=== PATIENT | female | born 1945 | race Caucasian/White ===

== ENCOUNTER 2022-01-10 11:49 | Outpatient (CLI) | payer MEDICARE, SELFPAY ==
[2022-01-10 12:28] LABS: Hematocrit 41.3 % (33.0-51.0); Hemoglobin* 13.8 gm/dL (12.0-16.0); Mean Corpuscular HGB Conc 33 gm/dL (32-36); Mean Corpuscular Hemoglobin 33 pg (26-34); Mean Corpuscular Volume 99 fL (80-100); Platelet Count* 212 K/uL (140-440); Red Blood Count 4.19 m/uL (4.00-5.20); White Blood Count* 8.59 K/uL (4.50-11.00)
[2022-01-10 21:37] LABS: Albumin* 4.4 g/dL (3.3-5.0)
[2022-01-10 21:38] LABS: Chloride* 98 mmol/L (96-114); Potassium* 4.6 mmol/L (3.6-5.1); Sodium* 133 mmol/L (135-149)
[2022-01-10 21:40] LABS: Aspartate Amino Transferase* 29 U/L (12-35); Bilirubin Total* 0.5 mg/dL (0.1-1.5); Carbon Dioxide* 26 mmol/L (20-32); Creatinine* 0.7 mg/dL (0.5-1.5); Estimated Glomerular Filt Rate 89 ml/min
[2022-01-10 21:41] LABS: Alanine Aminotransferase* 18 U/L (4-35); Alkaline Phosphatase* 88 U/L (40-150); Blood Urea Nitrogen* 22 mg/dL (7-30); Calcium* 9.1 mg/dL (8.4-10.6); Glucose* 94 mg/dL (60-115); Total Protein* 7.8 g/dL (6.0-8.3)
[2022-01-10 22:14] LABS: TSH With Reflex to FT4* 0.723 uIU/mL (0.270-4.200)
[2022-01-11 08:00] LABS: Slide Review Reflex No
[2022-01-12 13:22] LABS: LDL Cholesterol, Direct 135 mg/dL (0-129)
== END 2022-01-10 11:50 | disposition home or self-care (01) ==
PROVIDERS: PCP Family Medicine; Visit Provider Family Medicine
DX: I10 Essential (primary) hypertension (principal); L40.9 Psoriasis, unspecified; E78.5 Hyperlipidemia, unspecified; R06.09 Other forms of dyspnea; R00.2 Palpitations
CPT/HCPCS: 80053; 83721; 84443; 85027

== ENCOUNTER 2022-05-14 19:59 | Emergency (ER) | payer MEDICARE, SELFPAY ==
[2022-05-14] VITALS (40 sets, daily range): BP systolic 125–188; BP diastolic 76–133; PULSE 67–148; RESP 18; TEMP 36.6; O2SAT 94–99; BMI 24.6
--- NOTE | 2022-05-14 20:33 | CRLHL7_ITS ---
For Patients: As a result of the Cures Act, medical imaging exams and procedure reports are released immediately into your electronic medical record. You may view this report before your referring provider. If you have questions, please contact your health care provider. INDICATION: Shortness of breath. TECHNIQUE: Chest 1 views. COMPARISON: Chest x-ray from 05/06/2010. FINDINGS: Lungs: Patchy right lower lobe opacity. Pleura: No pleural effusion or pneumothorax. Heart and Mediastinum: The cardiomediastinal silhouette is mildly prominent. The vessels are unremarkable. Bones: Unremarkable. IMPRESSION: Right lower lobe opacity could be atelectasis or developing infection in the appropriate clinical setting. Dictated by Lisandro Jones MD @ 05/14/2022 9:23:36 PM (Electronically Signed)
[2022-05-14] MEDS: dilTIAZem 5 MG/ML inj 10 MG IVP (20:35)
[2022-05-14 20:40] LABS: Basophils Absolute Auto 0.04 K/uL (0.00-0.30); Basophils Percent Auto 0.4 % (0.0-3.0); Eosinophils Absolute Auto 0.13 K/uL (0.00-0.50); Eosinophils Percent Auto 1.3 % (0.0-7.0); Hematocrit 43.2 % (33.0-51.0); Hemoglobin* 14.6 gm/dL (12.0-16.0); Immature Granulocytes Abs Auto 0.01 K/uL (0.00-0.30); Immature Granulocytes Pct Auto 0.1 %; Lymphocytes Absolute Auto 2.19 K/uL (0.90-2.90); Lymphocytes Percent Auto 21.2 % (20-44); Mean Corpuscular HGB Conc 34 gm/dL (32-36); Mean Corpuscular Hemoglobin 32 pg (26-34); Mean Corpuscular Volume 96 fL (80-100); Neutrophils Absolute Auto 7.23 K/uL (1.7-7.0); Platelet Count* 222 K/uL (140-440); RDW Coefficient of Variation % 11.7 % (11.5-15.5); Red Blood Count 4.52 m/uL (4.00-5.20); White Blood Count* 10.32 K/uL (4.50-11.00)
[2022-05-14 20:42] LABS: Slide Review Reflex No
--- NOTE | 2022-05-14 20:59 | ED_ITS ---
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 Symptoms began in the last 2 hours prior to arrival. Pt having some anterior 4/10 chest pain as well. No diaphoresis, nausea, vomiting but does feel weak. Pt is on stable medications and has had no other symptoms recently. Pain is dull and does not radiate. Pain is located in the mid chest anteriorly. No treatments prior to arrival. EKG upon arrival shows atrial fibrillation with a rate of 147. Pt placed on tele and does at times convert to sinus rhythm with a rate of 75 but goes back into atrial fibrillation with RVR after only a few seconds. Related Data Home Medications Medication Instructions Recorded Confirmed aspirin 325 mg tablet 325 mg PO QDAY 05/03/22 05/03/22 Previous Rx's Medication Instructions Recorded lisinopril 10 mg tablet 10 mg PO QDAY #90 tabs 03/04/22 metoprolol succinate 25 mg 25 mg PO QDAY #90 tabs 03/12/22 tablet,extended release 24 hr Allergies Allergy/AdvReac Type Severity Reaction Status Date / Time No Known Allergies Allergy Unknown Verified 05/03/22 09:33 Review of Systems Status of ROS: Reports: 10 or more systems reviewed and unremarkable except as noted in History and below [facility] Medical History Gastroesophageal reflux disease (05/01/10) Hypertension (06/08/10) Psoriasis (05/01/10) Surgical History History of appendectomy (05/01/10) Family History Other Osteoarthritis Social History Narrative: Has 4 children- 1 , 1 lives [place] Smoking Status: Former smoker How often do you have a drink containing alcohol: 4 or more times a week How many standard drinks containing alcohol do you have on a typical day: 1 or 2 How often do you have six or more drinks on one occasion: Never AUDIT-C Alcohol total score: 4 Non-prescribed substance use: denies use Exam Narrative: Exam Narrative: EXAM GENERAL: Patient appears comfortable and well. EYES: No scleral icterus. LYMPH: No supraclavicular or cervical lymphadenopathy. SKIN: Visible skin seen during exam normal or with benign process only. EXT: No dependent lower extremity pedal edema. HEART: Regular rate and rhythm with no murmurs, rubs, or gallops. LUNGS: Clear to auscultation bilaterally with no crackles or wheezes. ABD: Soft, non tender, non distended. PSYCH: Good eye contact, speech is not pressured. Const: Vital Signs, click to edit/add: Vital Signs - 24 hr 05/14/22 20:20 05/14/22 20:20 05/14/22 20:30 Temperature 97.9 F Pulse Rate Pulse Rate [Left P ulse Oximeter] 148 H 130 H 78 Respiratory Rate 18 Blood Pressure Blood Pressure [Ri ght Upper Arm] 180/133 H 180/133 H 188/106 H Pulse Oximetry 98 98 99 Oxygen Delivery Me thod Room Air Room Air Room Air 05/14/22 20:39 05/14/22 20:40 05/14/22 20:41 Temperature Pulse Rate 118 H 115 H 120 H Pulse Rate [Left P ulse Oximeter] Respiratory Rate Blood Pressure 162/100 H Blood Pressure [Ri ght Upper Arm] Pulse Oximetry 99 96 99 Oxygen Delivery Me thod 05/14/22 20:48 05/14/22 20:42 05/14/22 20:50 Temperature Pulse Rate 118 H 120 H Pulse Rate [Left P ulse Oximeter] Respiratory Rate Blood Pressure Blood Pressure [Ri ght Upper Arm] Pulse Oximetry 99 98 98 Oxygen Delivery Me thod 05/14/22 20:53 05/14/22 21:02 05/14/22 21:12 Temperature Pulse Rate 129 H 90 81 Pulse Rate [Left P ulse Oximeter] Respiratory Rate Blood Pressure 170/96 H Blood Pressure [Ri ght Upper Arm] Pulse Oximetry 97 97 94 Oxygen Delivery Me thod 05/14/22 21:20 05/14/22 21:22 05/14/22 21:23 Temperature Pulse Rate 74 76 77 Pulse Rate [Left P ulse Oximeter] Respiratory Rate Blood Pressure 126/86 Blood Pressure [Ri ght Upper Arm] Pulse Oximetry 97 98 98 Oxygen Delivery Me thod 05/14/22 21:30 05/14/22 21:31 05/14/22 21:40 Temperature Pulse Rate 74 74 73 Pulse Rate [Left P ulse Oximeter] Respiratory Rate Blood Pressure 134/79 Blood Pressure [Ri ght Upper Arm] Pulse Oximetry 97 97 97 Oxygen Delivery Me thod 05/14/22 21:43 05/14/22 21:50 05/14/22 21:52 Temperature Pulse Rate 78 73 73 Pulse Rate [Left P ulse Oximeter] Respiratory Rate Blood Pressure 131/83 Blood Pressure [Ri ght Upper Arm] Pulse Oximetry 94 96 96 Oxygen Delivery Me thod 05/14/22 22:00 05/14/22 22:02 05/14/22 22:10 Temperature Pulse Rate 71 73 69 Pulse Rate [Left P ulse Oximeter] Respiratory Rate Blood Pressure 137/79 Blood Pressure [Ri ght Upper Arm] Pulse Oximetry 96 96 97 Oxygen Delivery Me thod 05/14/22 22:13 05/14/22 22:20 05/14/22 22:23 Temperature Pulse Rate 69 68 69 Pulse Rate [Left P ulse Oximeter] Respiratory Rate Blood Pressure 125/76 130/80 Blood Pressure [Ri ght Upper Arm] Pulse Oximetry 97 97 98 Oxygen Delivery Me thod 05/14/22 22:30 05/14/22 22:34 05/14/22 22:40 Temperature Pulse Rate 67 67 69 Pulse Rate [Left P ulse Oximeter] Respiratory Rate Blood Pressure Blood Pressure [Ri ght Upper Arm] Pulse Oximetry 97 97 97 Oxygen Delivery Me thod 05/14/22 22:43 05/14/22 22:50 05/14/22 22:54 Temperature Pulse Rate 69 69 67 Pulse Rate [Left P ulse Oximeter] Respiratory Rate Blood Pressure Blood Pressure [Ri ght Upper Arm] Pulse Oximetry 97 97 97 Oxygen Delivery Me thod 05/14/22 23:00 05/14/22 23:10 05/14/22 23:15 Temperature Pulse Rate 69 70 78 Pulse Rate [Left P ulse Oximeter] Respiratory Rate Blood Pressure Blood Pressure [Ri ght Upper Arm] Pulse Oximetry 97 97 97 Oxygen Delivery Me thod 05/14/22 23:20 05/14/22 23:24 05/14/22 23:30 Temperature Pulse Rate 69 75 72 Pulse Rate [Left P ulse Oximeter] Respiratory Rate Blood Pressure Blood Pressure [Ri ght Upper Arm] Pulse Oximetry 98 98 98 Oxygen Delivery Me thod 05/14/22 23:40 05/14/22 23:50 Temperature Pulse Rate 81 69 Pulse Rate [Left P ulse Oximeter] Respiratory Rate Blood Pressure Blood Pressure [Ri ght Upper Arm] Pulse Oximetry 99 97 Oxygen Delivery Me thod Course Course Hospital Course: Pt seen and examined. Consulted with Cardiology who agreed with Cardizem 10 mg IV to slow the rate. Reevaluation(s) Reevaluation #1: Labs reassuring. Pt converted back to sinus rhythm after the 10 mg IV Cardizem given. 90 minute troponin pending. Time: 22:29 Reevaluation #2: POC Troponin at 90 minutes mildly elevated at 0.07 but lab Troponin normal. Case discussed again with Cardiology recommending rate control. Pt refuses anticoagulation. Time: 23:15 Vital Signs Vital signs: Initial Vital Signs Temperature 97.9 F 05/14/22 20:20 Temperature Source Temporal Artery Scan 05/14/22 20:20 Pulse Rate 148 H 05/14/22 20:20 Pulse Rhythm 05/14/22 20:20 Respiratory Rate 18 05/14/22 20:20 Blood Pressure 180/133 H 05/14/22 20:20 Blood Pressure Mean 148 05/14/22 20:20 Blood Pressure Position Semi-Fowlers 05/14/22 20:20 Pulse Oximetry 98 05/14/22 20:20 Oxygen Delivery Method 05/14/22 20:20 Vital Signs Temperature 97.9 F 05/14/22 20:20 Pulse Rate 148 H 05/14/22 20:20 Respiratory Rate 18 05/14/22 20:20 Blood Pressure 180/133 H 05/14/22 20:20 Pulse Oximetry 98 05/14/22 20:20 Oxygen Delivery Method 05/14/22 20:20 Temperature 97.9 F 05/14/22 20:20 Pulse Rate 69 05/14/22 23:50 Respiratory Rate 18 05/14/22 20:20 Blood Pressure 130/80 05/14/22 22:23 Pulse Oximetry 97 05/14/22 23:50 Oxygen Delivery Method 05/14/22 20:30 MDM - Arrhythmia/Palpitations MDM Narrative Medical decision making narrative: Pt with a history of atrial fibrillation presents with tachycardia. Pt given 10 mg of Cardizem once. Converted to sinus rhythm. Lab troponin times two normal. Case discussed with Cardiology. Will increase Toprol XL to 37.5 daily with Cardiology follow up. Pt continues to refuse anticoagulation. Differential Diagnosis Differential diagnosis: Likely palpitations, sinus tachycardia, artial fibrillation, artial flutter, ventricular premature beats, supraventricular tachycardia, ventricular tachycardia and WPW Medical Records Attestation: I reviewed the patient's medical records. Lab Data Labs: Lab Results 05/14/22 05/14/22 05/14/22 Range/Units 20:20 20:30 20:30 WBC 10.32 (4.50-11.00) K/uL RBC 4.52 (4.00-5.20) m/uL Hgb 14.6 (12.0-16.0) gm/dL Hct 43.2 (33.0-51.0) % MCV 96 (80-100) fL MCH 32 (26-34) pg MCHC 34 (32-36) gm/dL RDW Coeff of Katheryn 11.7 (11.5-15.5) % Plt Count 222 (140-440) K/uL Neut % (Auto) 70.0 (42.0-72.0) % Lymph % (Auto) 21.2 (20-44) % [place] % (Auto) 7.0 (0.0-11.0) % Eos % (Auto) 1.3 (0.0-7.0) % Baso % (Auto) 0.4 (0.0-3.0) % Neut # (Auto) 7.23 H (1.7-7.0) K/uL Lymph # (Auto) 2.19 (0.90-2.90) K/uL [place] # (Auto) 0.70 (0.00-0.90) K/UL Eos # (Auto) 0.13 (0.00-0.50) K/uL Baso # (Auto) 0.04 (0.00-0.30) K/uL D-Dimer Quant (PE/DVT) 0.35 (0.00-0.50) ug/ml Sodium (135-149) mmol/L Potassium (3.6-5.1) mmol/L Chloride (96-114) mmol/L Carbon Dioxide (20-32) mmol/L BUN (7-30) mg/dL Creatinine (0.5-1.5) mg/dL Estimated Creat Clear Estimated GFR ml/min Glucose (60-115) mg/dL Calcium (8.4-10.6) mg/dL Troponin I (0.01-0.04) ng/mL POC Troponin I 0.00 L (0.01-0.04) ng/ml 05/14/22 05/14/22 05/14/22 Range/Units 20:30 22:31 22:31 WBC (4.50-11.00) K/uL RBC (4.00-5.20) m/uL Hgb (12.0-16.0) gm/dL Hct (33.0-51.0) % MCV (80-100) fL MCH (26-34) pg MCHC (32-36) gm/dL RDW Coeff of Katheryn (11.5-15.5) % Plt Count (140-440) K/uL Neut % (Auto) (42.0-72.0) % Lymph % (Auto) (20-44) % [place] % (Auto) (0.0-11.0) % Eos % (Auto) (0.0-7.0) % Baso % (Auto) (0.0-3.0) % Neut # (Auto) (1.7-7.0) K/uL Lymph # (Auto) (0.90-2.90) K/uL [place] # (Auto) (0.00-0.90) K/UL Eos # (Auto) (0.00-0.50) K/uL Baso # (Auto) (0.00-0.30) K/uL D-Dimer Quant (PE/DVT) (0.00-0.50) ug/ml Sodium 135 (135-149) mmol/L Potassium 3.6 (3.6-5.1) mmol/L Chloride 100 (96-114) mmol/L Carbon Dioxide 22 (20-32) mmol/L BUN 20 (7-30) mg/dL Creatinine 0.7 (0.5-1.5) mg/dL Estimated Creat Clear 45.82 Estimated GFR 89 ml/min Glucose 122 H (60-115) mg/dL Calcium 9.2 (8.4-10.6) mg/dL Troponin I < 0.01 L 0.01 (0.01-0.04) ng/mL POC Troponin I 0.07 H (0.01-0.04) ng/ml Discharge Plan Discharge Clinical Impression: A-fib Patient Disposition: Home, Self-Care Condition: Stable Instructions: A-fib (Atrial Fibrillation) (ED) Additional Instructions: Increase Toprol XL at home from 25 to 37.5 mg izzy Follow up with Cardiology Activity Level: No Restrictions Discharge Diet: Regular Prescriptions: No Action aspirin 325 mg tablet 325 mg PO QDAY metoprolol succinate 25 mg tablet extended release 24 hr 25 mg PO QDAY Qty: 90 3RF lisinopril 10 mg tablet 10 mg PO QDAY Qty: 90 3RF Follow Up/Referrals: Breanne Veliz MD [Primary Care Provider] - Stand Alone Forms: MyHealth Info Instructions
[2022-05-14 21:16] LABS: Chloride* 100 mmol/L (96-114); Sodium* 135 mmol/L (135-149)
[2022-05-14 21:17] LABS: Potassium* 3.6 mmol/L (3.6-5.1)
[2022-05-14 21:19] LABS: Blood Urea Nitrogen* 20 mg/dL (7-30); Carbon Dioxide* 22 mmol/L (20-32); Creatinine* 0.7 mg/dL (0.5-1.5); Est. Creatinine Clearance* 45.82; Estimated Glomerular Filt Rate 89 ml/min
[2022-05-14 21:20] LABS: Calcium* 9.2 mg/dL (8.4-10.6); Glucose* 122 mg/dL (60-115)
[2022-05-14 21:21] LABS: D Dimer Quantitative* 0.35 ug/ml (0.00-0.50)
[2022-05-14 21:35] LABS: Troponin I* < 0.01 ng/mL (0.01-0.04)
[2022-05-14 22:57] LABS: Troponin, Point-of-Care* 0.07 ng/ml (0.01-0.04)
[2022-05-14 23:38] LABS: Troponin I* 0.01 ng/mL (0.01-0.04)
[2022-05-15 00:26] VITALS: BP 151/83; PULSE 66; RESP 16
== END 2022-05-15 00:27 | disposition home or self-care (01) ==
PROVIDERS: Emergency Provider Internal Medicine; PCP Family Medicine
DX: I48.91 Unspecified atrial fibrillation (principal)
CPT/HCPCS: 36415; 71045; 80048; 84484; 85025; 85379; 93005; 94761; 99283; 99284; 99285

== ENCOUNTER 2022-06-04 11:13 | Outpatient (CLI) | payer MEDICARE, SELFPAY ==
[2022-06-04 13:14] LABS: Cholesterol* 215 mg/dL (90-199); HDL Cholesterol* 52 mg/dL (>=50); LDL Cholesterol Calculated 118 mg/dL (<100); Triglycerides* 227 mg/dL (40-149)
== END 2022-06-04 11:14 | disposition home or self-care (01) ==
LOC: NFLDREF 11:14
PROVIDERS: PCP Internal Medicine; Visit Provider Internal Medicine
DX: E78.5 Hyperlipidemia, unspecified (principal)
CPT/HCPCS: 80061

== ENCOUNTER 2023-06-25 08:59 | Outpatient (CLI) | payer MEDICARE, SELFPAY ==
--- OUTSIDE RECORDS SUMMARY | 2023-06-26 06:25 | XMS_ITS | Clinical Summary ---
Author Name Unknown Organization [facility] Address [place], [place] [address] Care Team Providers Care Vegetable Scullion Name Role Phone Dick Smith Of Primary Care Provider Un available Allergies No known active allergies Medications Medication Sig Dispensed Refills Start Date End Date Status metoprolol tartrate (LOPRESSOR) 25 mg tablet 0 01/06/2019 Active lisinopril (PRINIVIL; ZESTRIL) 10 mg tablet 0 01/13/2019 Act nabil metoprolol succinate (TOPROL XL) 25 mg Sustained-Release tablet Take 25 mg by mouth once daily. 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 Office Visit [facility] [address] [place] [address] Connor Pedro, OD Eye Exam (CEE) 06/02/2023 Travel from Last 3 Months Social History Tobacco Use Types Packs/Day Years Used Date Smoking Tobacco: Former Comments:1970 Alcohol Use Standard Drinks/Week Comments Not Asked 0 (1 standard drink = 0.6 oz pur e alcohol) Alcoholic Drinks/day: 2 Social Connections Answer Date Recorded Frequency of Communication with Friends and Fami ly Not on file 05/03/2022 Sex and Gender Information Value Date Recorded Sex Assigned at Not on file Gender Identity Not on file Sexual Orientation Not on file Obstetrics History Last Filed Vital Signs Vital Sign Reading Time Taken Comments Blood Pressure 129/78 01/18/2019 10:21 AM CDT Pulse 77 01/18/2019 10:21 AM CDT Temperature 36.7 ??C (98.1 ??F) 12/09/2006 1:30 PM CD T Respiratory Rate 18 12/09/2006 1:30 PM CDT Oxygen Saturation - - Inhaled Oxygen Concentration - - Weight 78.1 kg (172 lb 1.6 oz) 12/09/2006 1:30 P M CDT Height - - Body Mass Index - - Plan of Treatment Health Maintenance Due Date Last Done Comments Tdap 1955 Depression screening for age 12+ 1956 BMI (ht and wt on same day) for age 18+ 1962 Hepatitis C screening for ag e 18-79 1962 Tetanus booster 1964 Zoster (shingles) series for age 50+ (1 of 2) 1994 DEXA/DXA scan for age 65+ 2009 Medicare Wellness for age 65+ 2009 Pneumococcal series for age 65+ (1 of 1 - PCV) 2009 Influenza for age 65+ 01/24/2023 COVID-19 vaccine series Completed 03/24/20 23, 05/07/2022, 04/24/2021, Additional history exists Care Teams Vegetable Scullion Relationship Specialty Start Date End Date Dick Smith Phys Of PCP - General 05/06/22
== END 2023-06-25 09:00 | disposition home or self-care (01) ==
LOC: NFLDREF 06-26 06:23
PROVIDERS: PCP Internal Medicine; Referring Provider Internal Medicine; Visit Provider Internal Medicine
DX: I48.20 Chronic atrial fibrillation, unspecified (principal); Z79.01 Long term (current) use of anticoagulants
CPT/HCPCS: 85610

== ENCOUNTER 2023-07-04 08:35 | Outpatient (CLI) | payer MEDICARE, SELFPAY ==
--- OUTSIDE RECORDS SUMMARY | 2023-07-07 08:41 | XMS_ITS | Clinical Summary ---
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
== END 2023-07-04 08:36 | disposition home or self-care (01) ==
LOC: NFLDREF 07-07 08:20
PROVIDERS: PCP Internal Medicine; Referring Provider Internal Medicine; Visit Provider Internal Medicine
DX: E78.5 Hyperlipidemia, unspecified (principal); I10 Essential (primary) hypertension; Z13.29 Encounter for screening for other suspected endocrine disorder
CPT/HCPCS: 80048; 80061; 84443

== ENCOUNTER 2023-07-23 11:11 | Outpatient (CLI) | payer MEDICARE, SELFPAY ==
[2023-07-23 11:18] VITALS: BP 155/77; PULSE 55; RESP 16; O2SAT 100
[2023-07-23] MEDS: TETRACAINE 0.5% OPHTH 1 DROP EYE-RIGHT ×3 (11:21→11:56)
[2023-07-23] MEDS: BRIMONIDINE TARTRATE 0.2% OPHTH 1 DROP EYE-RIGHT ×2 (11:23→12:03)
--- NOTE | 2023-07-23 12:16 | P.OPTPRC_ITS ---
Procedure Note Date of procedure: 07/23/23 Will [facility] bill your pro fee for this procedure?: Yes Procedure Description: SURGEON: Breanna Doty MD PREOPERATIVE DIAGNOSIS: Posterior capsular opacity, right eye POSTOPERATIVE DIAGNOSIS: Posterior capsular opacity, right eye PROCEDURE: YAG laser capsulotomy, right eye ANESTHESIA: Topical. ESTIMATED BLOOD LOSS: None PATHOLOGY SPECIMEN: None COMPLICATIONS: None INDICATIONS: See consult note for details. The risks, benefits and alternatives of the procedure were explained to the patient, who elected to proceed and signed informed consent to do so. PROCEDURE: The patient was brought to the pre-holding area where the right eye was identified as the operative eye. I placed my initials above this eye. The patient received 2 sets of 1 drop of 0.5% tetracaine and 1 drop of 1% tropicamide. They also received 1 drop of 0.2% brimonidine. They received 1 drop of 0.5% tetracaine immediately prior to bringing them back for the procedure. The patient was then brought to the procedure room where the right eye was again identified as the operative eye. A YAG Torrey capsulotomy lens was placed on the eye. The laser was administered using a total number of 19 shots with an energy of 2.4 mJ per shot for a total energy of 46 mJ. The patient tolerated the procedure well. DISPOSITION: The patient was taken back to the pre-holding area and given 1 drop of 0.2% brimonidine in the right eye. They were discharged to home in stable condition. The patient was instructed to call me or go to the emergency department with any sudden change, including dramatic loss of vision, severe pain in the eye or eyebrow region, nausea, or vomiting. The patient was instructed to use the 0.2% brimonidine 1 drop 2 times a day in the right eye for 1 week. The patient will follow up in the clinic in 1-2 weeks.
== END 2023-07-23 12:06 | disposition home or self-care (01) ==
PROVIDERS: PCP Internal Medicine; Visit Provider Ophthalmology
DX: H26.9 Unspecified cataract (principal)
CPT/HCPCS: 66821; A9270

== ENCOUNTER 2024-07-05 09:47 | Outpatient (CLI) | payer MEDICARE, SELFPAY | END 2024-07-05 09:48 | disposition home or self-care (01) | LOC: NFLDREF 07-09 02:56 | PROVIDERS: PCP Internal Medicine; Referring Provider Internal Medicine; Visit Provider Internal Medicine | DX: I10 Essential (primary) hypertension (principal) | CPT/HCPCS: 80048 ==

== ENCOUNTER 2024-08-03 13:45 | Outpatient (RCR) | payer MEDICARE, SELFPAY ==
--- NOTE | 2024-07-13 14:29 | PT.OPE ---
PT [facility] Outpatient Eval PT [facility] Outpatient Eval Start: 07/13/24 08:38 Freq: Status: Active Protocol: Document 07/13/24 13:01 LSL (Rec: 07/13/24 14:18 LSL [id number]) E-signed By Aishwarya Ruby PT Physical Therapy Outpatient Evaluation Insurance Information Insurance Name Medicare B,[facility] Insurance Information/Comments Medicare Advantage Plan Medical Diagnosis R sided sciatica Referring MD Madsen Subjective Subjective Insidious onset about 3 weeks ago. Pt. has pain that starts at L-S junctions and radiates down the outside of her leg to her ankle. She describes the pain as really achy. Pain is always worse in the morning. I am fine laying in bed but when I have to get up then it really starts to bother. If I am standing at the sink doing dishes that is also quite painful. Walking hurts a little but if I concentrate and stay upright for short distances like walking down the driveway. it feels okay but if I am pushing a grocery cart and moving around a store then it hurts. Pt. lives with her son and grandson. Using a lidocaine patch helps. I have tried tylenol but that doesn' t do much and I can't take NSAIDs due to warfarin use. Initially I was prescribed prednisone and that helped and finished it around . Symptoms are creeping back up since finishing prednisone. She wants to be able to garden this spring and she has a few raised beds. Intermittently has paresthesia in L hand and R foot. She is right hand dominant. Pain Comments 2/10 best, 5/10 worst in the last week, when I first called the doctor it was 8-10 Date of Last Physician Visit 07/08/24 Current Work Status Retired Precautions Weight Bearing Status Full Weight Bearing Therapy Limitations/Systems Review Not Limited Objective Range of Motion AROM Lumbar flexion WNL, extension 50%, RLF WNL with pain L-S, LLF WNL, B rotation WFL PROM - B SKC and DKC WNL, PPU WNL with pain in LB at EOR Strength Ankle/Foot - great toe extension 5/5 B, R DF 4/5, L DF 5/5, Knee - B 5/5 Hip - R flexion 4+/5, L 5/5, R hip extension 4-/5 with pain, L 4/5, B IR and ER 5/5 Trunk - upper abdominals 2/5, lower abdominals 3/5 (but can go into a low V with upper abdominals support) Palpation R glut med tender to palpation throughout, R lumbar paraspinals significantly tighter than L but without tenderness, R QL negative, R piriformis negative Balance & Gait L 5-9 seconds, R 2 seconds max Gait - mildly antalgic with decreased stance on the R Posture Unremarkable Sensation/Reflexes B SLR negative Reflexes - B LE intact Slump test negative B Other/Pertinent Objective Joint Play - L3 PA painful, R L3-5 UPA's painful Assessment Assessment/Impression Pt. 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 Overall she is strong with the exception of her gluts and has an exercise program at baseline of chair yoga. She will benefit from PT to improve her core strength and motor control, learn management skills and utilize manual therapy and traction to decrease her symptoms. Primary Functional Limitations standing, walking Plan of Care Rehabilitation Potential Good Physical Therapy Goals SHORT TERM GOALS: (3 weeks) 1. Pt. understands and utilizes management tools to decrease stress and thereby symptoms to her LB. 2. Pt. to have 5/5 glut strength. 3. Pt. to report decreased symptoms to no lower than her knee. SNF GOALS: (6 weeks) 1. Pt. able to stand and complete her dishes with pain less than 2/10. 2. Pt. able to walk and complete a grocery store run with pain less than 2/10. Coordination/Communication With Referral Source Treatment Plan/Direct Interventions Joint Mobilization,Manual Therapy,Neuromuscular Re-ed, Self-Care/Home Management, Therapeutic Exercises,Traction (Mechanical) Frequency/Duration 2x/week 4 weeks Patient Will Be Discharged From Therapy Completion of LTG(s),Skills Plateau,Independent w/HEP, Independently Progressing Evaluation Billing Untimed Code Treatment Minutes 35 Complexity Low Certification Information Initial Certification Date 07/13/24 Ending Certification Date 10/11/24 Provider Signature Required Yes Provider Signature Shows Agreement With POC & Medical Necessity Physician NPI Number Write NPI# Here Physician Comment/Change : Physician Signature & Date Requested Please Sign/Date Here
== END 2024-10-13 09:26 | disposition home or self-care (01) ==
PROVIDERS: PCP Internal Medicine; Visit Provider Internal Medicine
DX: M54.31 Sciatica, right side (principal); Z51.89 Encounter for other specified aftercare
CPT/HCPCS: 97012; 97110; 97140; 97161

== ENCOUNTER 2024-11-23 19:34 | Observation (INO) | payer MEDICARE, SELFPAY ==
[2024-11-23] VITALS (22 sets, daily range): BP systolic 104–163; BP diastolic 66–105; PULSE 52–141; RESP 10–18; TEMP 36.9; O2SAT 93–100; BMI 25.7
--- NOTE | 2024-11-23 20:26 | ED.CHESTPAIN ---
HPI - Chest Pain General Time Seen by Provider: 20:27 Date Seen: 11/23/24 Chief Complaint: Chest Pain Stated Complaint: Pressure on chest Time Seen by Provider: 11/23/24 20:26 Source: patient Mode of arrival: ambulatory Limitations: no limitations History of Present Illness HPI narrative: 79-year-old female who presents today with chest pressure. She reports history of atrial fibrillation. She notes she was preparing dinner tonight just prior to coming in and started having some chest pressure, her watch noted she was in atrial fibrillation. She has paroxysmal atrial fibrillation. She denies nausea, vomiting, recent illness. She did miss her metoprolol tonight because she was at the emergency department but her symptoms started prior to normal time she would take it. She denies any missed doses medications. She has some shortness of breath but says that is usual for her. Related Data Previous Rx's ?Medication ?Instructions ?Recorded lisinopril 10 mg tablet 10 mg PO QDAY #90 tabs 07/08/24 metoprolol tartrate 25 mg tablet 25 mg PO BID #180 tabs 07/08/24 warfarin 5 mg tablet 5 mg PO QDAY #90 tabs 10/04/24 Allergies Allergy/AdvReac Type Severity Reaction Status Date / Time No Known Allergies Allergy Unknown Verified 11/23/24 19:42 PFSH PFSH Surgical History History of cataract surgery ?Z98.49 - Cataract extraction status, unspecified eye (ICD-10) History of appendectomy (05/01/10) ?Z90.49 - Acquired absence of other specified parts of digestive tract (ICD-10) Family History Osteoarthritis Social History Problems where you live details: [place] and sometimes mice Smoking Status: Former smoker How often do you have a drink containing alcohol: never AUDIT-C Alcohol total score: 0 Non-prescribed substance use: denies use service: No Exam Narrative Exam Narrative: General: Well-developed and well-nourished, no acute distress Head: Atraumatic and normocephalic Eyes: Pupils are equal reactive, extraocular motions intact, conjunctiva clear ENT: External nose and ears are normal, posterior pharynx without erythema or exudate Neck: No midline cervical tenderness, full spontaneous range of motion the neck, trachea midline, no adenopathy Heart: Tachycardic irregular Lungs: Clear to auscultation bilaterally without wheezes or crackles Abdomen: Soft, nontender, nondistended with active bowel sounds Musculoskeletal: No tenderness, deformity, or edema Neurologic: Awake, alert, and oriented x3, no gross focal neurologic deficits, cranial nerves intact as tested Psych: Mood and affect are appropriate Skin: No rashes Const Vital Signs, click to edit/add: Vital Signs - 24 hr 11/23/24 19:40 11/23/24 20:00 11/23/24 20:16 Temperature 98.4 F Pulse Rate 133 H 104 H Pulse Rate [Right Pulse Oximeter] 141 H Respiratory Rate 18 16 15 Blood Pressure 163/71 H 145/100 H Blood Pressure [Left Upper Arm] 160/103 H Pulse Oximetry 96 100 99 Oxygen Delivery Method Room Air Room Air Room Air 11/23/24 20:47 11/23/24 20:59 11/23/24 21:02 Temperature Pulse Rate 80 98 Pulse Rate [Right Pulse Oximeter] Respiratory Rate 16 14 Blood Pressure 149/76 H 128/83 Blood Pressure [Left Upper Arm] Pulse Oximetry 97 96 97 Oxygen Delivery Method Room Air Room Air 11/23/24 21:16 11/23/24 21:20 11/23/24 21:31 Temperature Pulse Rate 115 H 85 91 Pulse Rate [Right Pulse Oximeter] Respiratory Rate 15 16 14 Blood Pressure 134/91 H 133/77 Blood Pressure [Left Upper Arm] Pulse Oximetry 96 96 95 Oxygen Delivery Method Room Air 11/23/24 22:05 11/23/24 22:06 11/23/24 22:18 Temperature Pulse Rate 129 H 137 H Pulse Rate [Right Pulse Oximeter] Respiratory Rate 16 12 15 Blood Pressure 137/86 137/86 Blood Pressure [Left Upper Arm] Pulse Oximetry 96 97 Oxygen Delivery Method 11/23/24 22:20 11/23/24 22:31 11/23/24 22:40 Temperature Pulse Rate 80 93 90 Pulse Rate [Right Pulse Oximeter] Respiratory Rate 16 15 18 Blood Pressure 128/105 H Blood Pressure [Left Upper Arm] Pulse Oximetry 98 95 96 Oxygen Delivery Method 11/23/24 22:47 07/01/25 23:00 Temperature Pulse Rate 70 104 H Pulse Rate [Right Pulse Oximeter] Respiratory Rate 15 15 Blood Pressure 120/85 Blood Pressure [Left Upper Arm] Pulse Oximetry 97 96 Oxygen Delivery Method Room Air Course Course ED Course: Reviewed prior emergency department visit from April 2022 and patient was in atrial fibrillation, was given diltiazem and converted to normal sinus rhythm. Also reviewed primary care visit from June 2024 which time patient was on lisinopril, metoprolol, and Coumadin for what is described as paroxysmal atrial fibrillation. EKG independently interpreted by me performed at 7:43 p.m. demonstrates atrial fibrillation with rapid ventricular response rate 135, diffuse ST depressions, QTC 528, QRS 88. Compared to prior of April 2022, no change. Patient seen examined, presents today with chest pressure and palpitations. On exam here, is found to be in atrial fibrillation although she has brief periods where she will go back into sinus rhythm. EKG with for no acute ischemic changes but does show some ST depressions, likely strain related to rate and this is been seen before. Labs are ordered. Patient will be given her usual dose of metoprolol as well as some metoprolol IV to see if she can be rate controlled or converted. Reevaluation(s) Time of Reevaluation #1: 21:09 Reevaluation #1: Labs independently interpreted by me with normal hemoglobin and a normal study white blood cell count, normal basic metabolic panel. After metoprolol 2.5 mg patient remains in rapid cycling atrial fibrillation with rates in the 130s, occasionally down in the 60s but mostly in the 80s to 90s when she is in sinus. Additional metoprolol is ordered. Time of Reevaluation #2: 22:44 Reevaluation #2: Patient received metoprolol for 2.5 mg IV x2 doses with minimal improvement, was given diltiazem 10 mg IV which converted her in the past. she now is in sinus rhythm but bigeminy but also still having runs of atrial flutter with rates into the 120s to 140s. Time of Reevaluation #3: 23:07 Reevaluation #3: Care discussed with Dr. Rogers, cardiology who agrees the patient is not a good candidate for cardioversion due to paroxysmal atrial fibrillation, recommends additional metoprolol 25 mg orally. Care discussed with Dr. Hsu, hospitalist for admission. Vital Signs Vital signs: Initial Vital Signs Temperature 98.4 F 11/23/24 19:40 Temperature Source Temporal Artery Scan 11/23/24 19:40 Pulse Rate 141 H 11/23/24 19:40 Pulse Rhythm Irregular 11/23/24 19:40 Pulse Strength 3+ Normal 11/23/24 19:40 Respiratory Rate 18 11/23/24 19:40 Blood Pressure 160/103 H 11/23/24 19:40 Blood Pressure Mean 122 H 11/23/24 19:40 Blood Pressure Position Supine 11/23/24 19:40 Pulse Oximetry 96 11/23/24 19:40 Oxygen Delivery Method Room Air 11/23/24 19:40 Vital Signs Temperature 98.4 F 11/23/24 19:40 Pulse Rate 141 H 11/23/24 19:40 Respiratory Rate 18 11/23/24 19:40 Blood Pressure 160/103 H 11/23/24 19:40 Pulse Oximetry 96 11/23/24 19:40 Oxygen Delivery Method Room Air 11/23/24 19:40 Temperature 98.4 F 11/23/24 19:40 Pulse Rate 104 H 11/23/24 23:00 Respiratory Rate 15 11/23/24 23:00 Blood Pressure 120/85 11/23/24 22:47 Pulse Oximetry 96 11/23/24 23:00 Oxygen Delivery Method Room Air 11/23/24 23:00 Medications Administered Medications: Discontinued Medications Generic Name Dose Route Start Last Admin Trade Name Freq PRN Reason Stop Dose Admin Diltiazem HCl 10 mg 11/23/24 22:07 11/23/24 22:19 Diltiazem 5 Mg/Ml Inj IVP 11/23/24 22:08 10 mg ONCE ONE Administration Sodium Chloride 1,000 mls @ 1,000 mls/hr 11/23/24 21:15 11/23/24 21:10 0.9 % Sodium Chloride 1000 Ml IV 11/23/24 22:14 Infused .Q1H MARISOL Infusion Metoprolol Tartrate 25 mg 11/23/24 20:37 11/23/24 20:50 Metoprolol Tartrate 25 Mg Tablet PO 11/23/24 20:38 25 mg ONCE ONE Administration Metoprolol Tartrate 2.5 mg 11/23/24 20:37 11/23/24 20:50 Metoprolol Tartrate 1 Mg/Ml Inj IVP 11/23/24 20:38 2.5 mg ONCE ONE Administration Metoprolol Tartrate 2.5 mg 11/23/24 21:10 11/23/24 21:16 Metoprolol Tartrate 1 Mg/Ml Inj IVP 11/23/24 21:11 2.5 mg ONCE ONE Administration MDM - Chest Pain Lab Data Labs: Lab Results 11/23/24 11/23/24 11/23/24 Range/Units 19:50 20:37 21:12 WBC 9.66 (4.50-11.00) K/uL RBC 4.55 (4.00-5.20) m/uL Hgb 14.4 (12.0-16.0) gm/dL Hct 43.6 (33.0-51.0) % MCV 96 (80-100) fL MCH 32 (26-34) pg MCHC 33 (32-36) gm/dL RDW Coeff of Katheryn 12.0 (11.5-15.5) % Plt Count 201 (140-440) K/uL Neut % (Auto) 49.7 (42.0-72.0) % Lymph % (Auto) 37.9 (20-44) % [place] % (Auto) 8.9 (0.0-11.0) % Eos % (Auto) 2.8 (0.0-7.0) % Baso % (Auto) 0.6 (0.0-3.0) % Neut # (Auto) 4.80 (1.7-7.0) K/uL Lymph # (Auto) 3.66 H (0.90-2.90) K/uL [place] # (Auto) 0.90 (0.00-0.90) K/UL Eos # (Auto) 0.27 (0.00-0.50) K/uL Baso # (Auto) 0.06 (0.00-0.30) K/uL Abs Immat Gran (auto) 0.01 (0.00-0.30) K/uL Imm/Tot Granulo (auto) 0.1 % INR 1.98 H (0.91-1.10) Sodium 135 (135-149) mmol/L Potassium 3.9 (3.6-5.1) mmol/L Chloride 101 (96-114) mmol/L Carbon Dioxide 22 (20-32) mmol/L Anion Gap 12 (7-15) mEq/L BUN 26 (7-30) mg/dL Creatinine 0.9 (0.5-1.5) mg/dL Estimated Creat Clear 38.75 Estimated GFR 65 ml/min Glucose 121 H (60-115) mg/dL Calcium 9.6 (8.4-10.6) mg/dL Magnesium 2.1 (1.5-2.6) mg/dL Troponin I < 0.01 (0.01-0.04) ng/mL NT-Pro-B Natriuret Pep 291 (See Note) pg/mL Lab Acknowledgement Test Added Test Added Discharge Plan Discharge Clinical Impression: Paroxysmal atrial fibrillation, Subtherapeutic international normalized ratio (INR), Anticoagulation goal of INR 2 to 3 Prescriptions: No Action metoprolol tartrate 25 mg tablet 25 mg PO BID Qty: 180 3RF lisinopril 10 mg tablet 10 mg PO QDAY Qty: 90 3RF warfarin 5 mg tablet 5 mg PO QDAY Qty: 90 0RF Protocol: Dose Management Condition: Friday Dose/Route: 2.5 mg Instruction: 0.5 x 5 mg tablets Condition: Friday Dose/Route: 5 mg Instruction: 1 x 5 mg tablet Condition: Friday Dose/Route: 5 mg Instruction: 1 x 5 mg tablet Condition: Friday Dose/Route: 2.5 mg Instruction: 0.5 x 5 mg tablets Condition: Dose/Route: 5 mg Instruction: 1 x 5 mg tablet Condition: Friday Dose/Route: 5 mg Instruction: 1 x 5 mg tablet Condition: Friday Dose/Route: 2.5 mg Instruction: 0.5 x 5 mg tablets Protocol Text: Adjustment Start Date: Friday11/23/24 INR Value: 2.4 INR Date: 11/23/24 Recheck Date: 12/21/24 Follow Up/Referrals: Namrata Madsen MD [Primary Care Provider, Internal Medicine]
[2024-11-23 20:45] LABS: Hematocrit 43.6 % (33.0-51.0); Hemoglobin* 14.4 gm/dL (12.0-16.0); Immature Granulocytes Abs Auto 0.01 K/uL (0.00-0.30); Immature Granulocytes Pct Auto 0.1 %; Lymphocytes Absolute Auto 3.66 K/uL (0.90-2.90); Mean Corpuscular HGB Conc 33 gm/dL (32-36); Mean Corpuscular Hemoglobin 32 pg (26-34); Mean Corpuscular Volume 96 fL (80-100); RDW Coefficient of Variation % 12.0 % (11.5-15.5); Red Blood Count 4.55 m/uL (4.00-5.20); White Blood Count* 9.66 K/uL (4.50-11.00)
[2024-11-23 20:49] LABS: Slide Review Reflex No
[2024-11-23] MEDS: METOPROLOL TARTRATE 25 MG TABLET PO ×2 (20:50→23:22)
[2024-11-23] MEDS: METOPROLOL TARTRATE 1 MG/ML inj 2.5 MG IVP ×2 (20:50→21:16)
[2024-11-23 21:02] LABS: Chloride* 101 mmol/L (96-114); Potassium* 3.9 mmol/L (3.6-5.1); Sodium* 135 mmol/L (135-149)
[2024-11-23 21:05] LABS: Anion Gap 12 mEq/L (7-15); Blood Urea Nitrogen* 26 mg/dL (7-30); Calcium* 9.6 mg/dL (8.4-10.6); Carbon Dioxide* 22 mmol/L (20-32); Creatinine* 0.9 mg/dL (0.5-1.5); Est. Creatinine Clearance* 38.75; Estimated Glomerular Filt Rate 65 ml/min; Glucose* 121 mg/dL (60-115)
[2024-11-23 21:23] LABS: INR 1.98 (0.91-1.10); Prothrombin Time 23.6 Seconds
[2024-11-23 21:27] LABS: NT Pro B Type NatriureticPept* 291 pg/mL (See Note)
[2024-11-23] MEDS: dilTIAZem 5 MG/ML inj 10 MG IVP (22:19)
--- NOTE | 2024-11-23 23:29 | PM.IMHP1 ---
Assessment and Plan Assessment and plan (1) Atrial fibrillation with RVR: Problem comment: Presented with chest pressure and a fib with HR 140s. Received total of oral metoprolol 50 mg, IV metoprolol 5 mg and IV diltiazem 10 mg in the ER with improvement in HR and intermittent NSR. Goal HR is less than 110 at rest. No clear inciting event. Bradycardia has limited her ability to tolerate higher dose of metoprolol in the past. Would consider referral to EP, but defer to her base engineer. Consider adding diltiazem at low dose if unable to control rate with metoprolol. Patient is concerned about continuing to have these episodes after discharge. -Admit to telemetry -Continue home dosing of metoprolol -Continue IV metoprolol 2.5 mg PRN for HR sustained greater than 110 -Recommend discussing strategies with cardiology in the am -Would likely benefit from zio patch at discharge -Will update echo here Status: Acute (2) Paroxysmal atrial fibrillation: Problem comment: Holter 03/16, saw [facility] base engineer, Dr. Blanco, 05/16, repeatedly refuses anticoagulation 06/17, warfarin started 07/18 (INR goal 2-3) Status: Acute (3) Anticoagulation goal of INR 2 to 3: Problem comment: indication: Paroxysmal atrial fibrillation, Goal 2-3, life-long Status: Acute (4) Essential hypertension: Problem comment: BP is acceptable. Continue present management and monitor while adjusting rate control Status: Acute Hospitalist- H&P: HPI History of Present Illness Date Seen: 11/23/24 Chief complaint: Pressure on chest Narrative: Valeria Whitlock is a 79 year old female with a history of paroxysmal atrial fibrillation on warfarin and hypertension who was in her usual state of health until she was cooking supper this evening and noticed some chest pressure. She has a smart watch that tracks her rhythm and she noted that she was in a fib. She normally maintains on low dose metoprolol tartrate 25 mg BID and did not miss any doses. She had not yet taken her evening dose when this occurred. She denies feeling otherwise ill. She presented to the ER where she was noted to have HR in the 140s. EKG confirmed atrial fibrillation with no other acute changes. In review of her most recent physical, she has reported similar episodes to her PCP where she will develop chest pressure when she is in a fib. Her PCP had to cut her higher dose of metoprolol in the past due to bradycardia, plan was to have her take additional metoprolol dose if and when she flips into a fib at home, but she hasn't done that despite somewhat frequent occurrences. Patient reports that she will sometimes wake up with a racing heart and this really impaired her sleep 2 nights ago. She is anticoagulated with warfarin. In the ER, she was given her home dose of evening metoprolol and an additional 5 mg IV metoprolol in 2 doses (2.5 mg each) as well as IV diltiazem 10 mg. She then vacillated between a fib and NSR and rates were somewhat improved when she was in a fib, but still RVR with HR 120s-130s. Blood pressure is stable, there is no elevation of proBNP or troponin and her CBC and BMP are unremarkable. ER spoke with cardiology who recommended an additional dose of oral metoprolol 25 mg and overnight observation on telemetry. Patient reports that she has followed with cardiology, but has not had an echo in several years. Review of Systems Status of ROS: Reports: 10 or more systems reviewed and unremarkable except as noted in History and below Medical Decision Making Medical Decision Making Has patient completed a Health Care Directive: Yes PFSH PFSH Surgical History History of cataract surgery ?Z98.49 - Cataract extraction status, unspecified eye (ICD-10) History of appendectomy (05/01/10) ?Z90.49 - Acquired absence of other specified parts of digestive tract (ICD-10) Family History Osteoarthritis Social History Problems where you live details: [place] and sometimes mice Smoking Status: Former smoker How often do you have a drink containing alcohol: never AUDIT-C Alcohol total score: 0 Non-prescribed substance use: denies use service: No Meds Home Medications and Allergies Home Medications ?Medication ?Instructions ?Recorded ?Confirmed ?Type lisinopril 10 mg tablet 10 mg PO QDAY #90 tabs 07/08/24 11/23/24 Rx metoprolol tartrate 25 mg tablet 25 mg PO BID #180 tabs 07/08/24 11/23/24 Rx warfarin 5 mg tablet 5 mg PO QDAY #90 tabs 10/04/24 11/23/24 Rx Allergies Allergy/AdvReac Type Severity Reaction Status Date / Time No Known Allergies Allergy Unknown Verified 11/23/24 19:42 Exam Narrative: Exam Narrative: General: Well appearing woman in no distress HEENT: NCAT Neck: No thyromegaly Resp: Breathing comfortable and unlabored CV: RRR with frequent ectopy Abd: Flat, soft, nontender Extremities, no edema Neuro: No lateralizing deficits Const: Vital Signs, click to edit/add: Vital Signs - 24 hr 11/23/24 19:40 11/23/24 20:00 11/23/24 20:16 Temperature 98.4 F Pulse Rate 133 H 104 H Pulse Rate [Right Pulse Oximeter] 141 H Respiratory Rate 18 16 15 Blood Pressure 163/71 H 145/100 H Blood Pressure [Le ft Upper Arm] 160/103 H Pulse Oximetry 96 100 99 Oxygen Delivery [facility] Room Air Room Air Room Air 11/23/24 20:47 11/23/24 20:59 11/23/24 21:02 Temperature Pulse Rate 80 98 Pulse Rate [Right Pulse Oximeter] Respiratory Rate 16 14 Blood Pressure 149/76 H 128/83 Blood Pressure [Le ft Upper Arm] Pulse Oximetry 97 96 97 Oxygen Delivery [facility] Room Air Room Air 11/23/24 21:16 11/23/24 21:20 11/23/24 21:31 Temperature Pulse Rate 115 H 85 91 Pulse Rate [Right Pulse Oximeter] Respiratory Rate 15 16 14 Blood Pressure 134/91 H 133/77 Blood Pressure [Le ft Upper Arm] Pulse Oximetry 96 96 95 Oxygen Delivery [facility] Room Air 11/23/24 22:05 11/23/24 22:06 11/23/24 22:18 Temperature Pulse Rate 129 H 137 H Pulse Rate [Right Pulse Oximeter] Respiratory Rate 16 12 15 Blood Pressure 137/86 137/86 Blood Pressure [Le ft Upper Arm] Pulse Oximetry 96 97 [facility] 22:20 11/23/24 22:31 11/23/24 22:40 Temperature Pulse Rate 80 93 90 Pulse Rate [Right Pulse Oximeter] Respiratory Rate 16 15 18 Blood Pressure 128/105 H Blood Pressure [Le ft Upper Arm] Pulse Oximetry 98 95 96 Oxygen Delivery Me thod 11/23/24 22:47 11/23/24 23:00 Temperature Pulse Rate 70 104 H Pulse Rate [Right Pulse Oximeter] Respiratory Rate 15 15 Blood Pressure 120/85 Blood Pressure [Le ft Upper Arm] Pulse Oximetry 97 96 Oxygen Delivery Nc thod Room Air Hospitalist - H&P: Result Labs Labs: Short CBC 11/23/24 Range/Units 19:50 WBC 9.66 (4.50-11.00) K/uL Hgb 14.4 (12.0-16.0) gm/dL Hct 43.6 (33.0-51.0) % Plt Count 201 (140-440) K/uL BMP 11/23/24 19:50 Sodium 135 Potassium 3.9 Chloride 101 Carbon Dioxide 22 BUN 26 Creatinine 0.9 Glucose 121 H Calcium 9.6 Cardiac Enzymes 11/23/24 Range/Units 19:50 Troponin I < 0.01 (0.01-0.04) ng/mL
[2024-11-24 00:13] VITALS: PULSE 55
[2024-11-24 00:34] VITALS: BP 154/73; PULSE 58; RESP 16; TEMP 36.3; O2SAT 98; BMI 25.2
[2024-11-24] MEDS: WARFARIN 5 MG TABLET PO (01:10)
[2024-11-24 05:00] VITALS: BP 119/61; PULSE 50; RESP 16; TEMP 36.3; O2SAT 97
--- NOTE | 2024-11-24 05:20 | PC.NURSE ---
Pt alert and oriented x3. Afebrile. Pt denies pain, SOB, chest pain, and N/V. Pt is up ad daija, voiding, and tolerating a regular diet. Pt?s tele showed sinus arrhythmia. ??
[2024-11-24 07:00] VITALS: PULSE 55
[2024-11-24 07:45] VITALS: BP 148/79; PULSE 60; RESP 18; TEMP 36.7; O2SAT 97
[2024-11-24] MEDS: METOPROLOL TARTRATE 25 MG TABLET PO (09:03)
[2024-11-24] MEDS: SODIUM CHLORIDE 0.9 % (FLUSH) 10 ML SYRINGE 5 ML IVF (09:04)
--- NOTE | 2024-11-24 10:14 | P.DS_ITS ---
DS: Providers Provider Date Seen: 11/24/24 Date of admission: 11/23/24 23:38 Primary care physician: Namrata Suarez MD Admitting Clinician: Pilar Hsu MD Attending Physician on discharge: Winnie Lopez, [facility], PAKatarzynaC [facility]ist Date of Discharge: 11/24/24 DS: Diagnosis Discharge Diagnosis (1) Atrial fibrillation with RVR: Status: Acute Problem details: Presented with chest pressure and a fib with HR 140s. Received total of oral metoprolol 50 mg, IV metoprolol 5 mg and IV diltiazem 10 mg in the ER with improvement in HR and intermittent NSR. Goal HR is less than 110 at rest. No clear inciting event. Bradycardia has limited her ability to tolerate higher dose of metoprolol in the past. 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 Consider adding diltiazem at low dose if unable to control rate with metoprolol. Patient is concerned about continuing to have these episodes after discharge. -Admit to telemetry -Continue home dosing of metoprolol -Continue IV metoprolol 2.5 mg PRN for HR sustained greater than 110 -Recommend discussing strategies with cardiology in the am -Would likely benefit from zio patch at discharge -Will update echo here Overnight, patient has remained vitally stable, site monitor without significant events. Echocardiogram not available until later this afternoon, patient preferred to discharge with outpatient echocardiogram rather than waiting. This is reasonable. PCP can assist in scheduling this. Recommend outpatient follow-up with Cardiology as well as it has been a few years. She is discharged with a Zio patch. Will continue on her metoprolol. Suggested she inquire with her insurance as well as local pharmacy as to cost of Eliquis/apixaban or other appropriate DOAC. Reports history of recurrent chest pressure/tachycardia and has an [employer] watch that monitors this. (2) Paroxysmal atrial fibrillation: Status: Acute Problem details: Holter 03/16, saw [facility] condenser winder, Dr. Blanco, 05/16, repeatedly refuses anticoagulation 06/17, warfarin started 07/18 (INR goal 2-3) As above (3) Anticoagulation goal of INR 2 to 3: Status: Acute Problem details: indication: Paroxysmal atrial fibrillation, Goal 2-3, life-long INR 1.98 on day of discharge. Recommendations as above (4) Essential hypertension: Status: Acute Problem details: BP is acceptable. Continue present management and monitor while adjusting rate control Ongoing management with PCP DS: Summary Hospital Course Hospital Course: Course of care and details as noted above. Atrial fibrillation with episode of RVR, resolved. Discharge with Zio patch in place. Recommending outpatient echocardiogram and cardiology follow-up. Will inquire about cost of DOAC. Status at Discharge Functional status at discharge: independent ambulation Overall status at discharge: patient is back to baseline Time Spent with Patient Time attestation: Total time spent providing and/or coordinating discharge services: Time spent: Greater than 30 minutes Exam Narrative: Exam Narrative: PHYSICAL EXAM General: Pleasant, conversant, NAD Cardiovascular: IRRR, mildly bradycardic Pulmonary: No dyspnea Neurological: Alert, answering questions appropriately Skin: Warm, dry. Const: Vital Signs, click to edit/add: Vital Signs - 24 hr 11/23/24 19:40 11/23/24 20:00 11/23/24 20:16 Temperature 98.4 F Pulse Rate 133 H 104 H Pulse Rate [Pulse Oximeter] Pulse Rate [Right Pulse Oximeter] 141 H Respiratory Rate 18 16 15 Blood Pressure 163/71 H 145/100 H Blood Pressure [Le ft Upper Arm] 160/103 H Blood Pressure [Ri ght Arm] Pulse Oximetry 96 100 99 Oxygen Delivery Mi thod Room Air Room Air Room Air 11/23/24 20:47 11/23/24 20:59 11/23/24 21:02 Temperature Pulse Rate 80 98 Pulse Rate [Pulse Oximeter] Pulse Rate [Right Pulse Oximeter] Respiratory Rate 16 14 Blood Pressure 149/76 H 128/83 Blood Pressure [Le ft Upper Arm] Blood Pressure [Ri ght Arm] Pulse Oximetry 97 96 [facility] 11/23/24 21:16 11/23/24 21:20 11/23/24 21:31 Temperature Pulse Rate 115 H 85 91 Pulse Rate [Pulse Oximeter] Pulse Rate [Right Pulse Oximeter] Respiratory Rate 15 16 14 Blood Pressure 134/91 H 133/77 Blood Pressure [Le ft Upper Arm] Blood Pressure [Ri ght Arm] Pulse Oximetry 96 96 95 Oxygen Delivery Mi thod Room Air 11/23/24 22:05 11/23/24 22:06 11/23/24 22:18 Temperature Pulse Rate 129 H 137 H Pulse Rate [Pulse Oximeter] Pulse Rate [Right Pulse Oximeter] Respiratory Rate 16 12 15 Blood Pressure 137/86 137/86 Blood Pressure [Le ft Upper Arm] Blood Pressure [Ri ght Arm] Pulse Oximetry 96 97 Oxygen Delivery [facility] 11/23/24 22:20 11/23/24 22:31 11/23/24 22:40 Temperature Pulse Rate 80 93 90 Pulse Rate [Pulse Oximeter] Pulse Rate [Right Pulse Oximeter] Respiratory Rate 16 15 18 Blood Pressure 128/105 H Blood Pressure [Le ft Upper Arm] Blood Pressure [Ri ght Arm] Pulse Oximetry 98 95 96 Oxygen Delivery [facility] 11/23/24 22:47 11/23/24 23:00 11/23/24 23:02 Temperature Pulse Rate 70 104 H 101 H Pulse Rate [Pulse Oximeter] Pulse Rate [Right Pulse Oximeter] Respiratory Rate 15 15 10 L Blood Pressure 120/85 104/66 Blood Pressure [Le ft Upper Arm] Blood Pressure [Ri ght Arm] Pulse Oximetry 97 96 95 Oxygen Delivery [facility] Room Air 11/23/24 23:18 11/23/24 23:20 11/23/24 23:32 Temperature Pulse Rate 52 L 57 L 55 L Pulse Rate [Pulse Oximeter] Pulse Rate [Right Pulse Oximeter] Respiratory Rate 14 14 12 Blood Pressure 131/69 126/76 Blood Pressure [Le ft Upper Arm] Blood Pressure [Ri ght Arm] Pulse Oximetry 96 97 97 Oxygen Delivery [facility] 11/23/24 23:50 11/24/24 00:13 11/24/24 00:34 Temperature 97.4 F L Pulse Rate 55 L Pulse Rate [Pulse Oximeter] 58 L Pulse Rate [Right Pulse Oximeter] Respiratory Rate 16 Blood Pressure Blood Pressure [Le ft Upper Arm] Blood Pressure [Ri ght Arm] 154/73 H Pulse Oximetry 93 98 Oxygen Delivery [facility] Room Air Room Air 11/24/24 00:34 11/24/24 05:00 11/24/24 07:00 Temperature 97.4 F L Pulse Rate 55 L Pulse Rate [Pulse Oximeter] 50 L Pulse Rate [Right Pulse Oximeter] Respiratory Rate 16 Blood Pressure Blood Pressure [Le ft Upper Arm] Blood Pressure [Ri ght Arm] 119/61 Pulse Oximetry 97 Oxygen Delivery [facility] Room Air Room Air 11/24/24 07:45 11/24/24 07:45 Temperature 98.1 F Pulse Rate Pulse Rate [Pulse Oximeter] 60 60 Pulse Rate [Right Pulse Oximeter] Respiratory Rate 18 18 Blood Pressure Blood Pressure [Le ft Upper Arm] Blood Pressure [Ri ght Arm] 148/79 H Pulse Oximetry 97 Oxygen Delivery Me thod Room Air DS: Data Data Completed and Pending Labs on day of discharge: Labs from last 24 hours 11/23/24 11/23/24 11/23/24 21:12 20:37 19:50 WBC 9.66 RBC 4.55 Hgb 14.4 Hct 43.6 MCV 96 MCH 32 MCHC 33 RDW Coeff of Katheryn 12.0 Plt Count 201 Neut % (Auto) 49.7 Lymph % (Auto) 37.9 [place] % (Auto) 8.9 Eos % (Auto) 2.8 Baso % (Auto) 0.6 Neut # (Auto) 4.80 Lymph # (Auto) 3.66 H [place] # (Auto) 0.90 Eos # (Auto) 0.27 Baso # (Auto) 0.06 Abs Immat Gran (auto) 0.01 Imm/Tot Granulo (auto) 0.1 INR 1.98 H Sodium 135 Potassium 3.9 Chloride 101 Carbon Dioxide 22 Anion Gap 12 BUN 26 Creatinine 0.9 Estimated Creat Clear 38.75 Estimated GFR 65 Glucose 121 H Calcium 9.6 Magnesium 2.1 Troponin I < 0.01 NT-Pro-B Natriuret Pep 291 Lab Acknowledgement Test Added Test Added Discharge Plan Discharge Disposition: Home, Self-Care Date of Admission: 11/23/24 23:38 Attending Provider on Discharge: Winnie Lopez Primary Care Provider: Namrata Suarez Condition: Improved Anticipated Discharge Date/Time: 11/24/24 10:08 Discharge Medications: Continued metoprolol tartrate 25 mg tablet 25 mg PO BID Qty: 180 3RF lisinopril 10 mg tablet 10 mg PO QDAY Qty: 90 3RF warfarin 5 mg tablet 5 mg PO QDAY Qty: 90 0RF Protocol: Dose Management Condition: Friday Dose/Route: 2.5 mg Instruction: 0.5 x 5 mg tablets Condition: Friday Dose/Route: 5 mg Instruction: 1 x 5 mg tablet Condition: Friday Dose/Route: 5 mg Instruction: 1 x 5 mg tablet Condition: Friday Dose/Route: 2.5 mg Instruction: 0.5 x 5 mg tablets Condition: Dose/Route: 5 mg Instruction: 1 x 5 mg tablet Condition: Friday Dose/Route: 5 mg Instruction: 1 x 5 mg tablet Condition: Friday Dose/Route: 2.5 mg Instruction: 0.5 x 5 mg tablets Protocol Text: Adjustment Start Date: Friday11/23/24 INR Value: 2.4 INR Date: 11/23/24 Recheck Date: 12/21/24 Discharge Orders: Discharge Order (Routine); Ordered 11/24/24 Ordered By: Winnie Lopez Additional Instructions: YOU ARE DISCHARGED WITH A ZIOPATCH. RETURN IT ACCORDING TO INSTRUCTIONS. YOU WILL NEED AN ECHOCARDIOGRAM AND AN OUTPATIENT CARDIOLOGY APPOINTMENT. DR. SUAREZ CAN SCHEDULE THIS FOR YOU. RECOMMEND CONTACTING YOUR INSURANCE AND PHARMACY TO INQUIRE ABOUT THE COST OF ELIQUIS/APIXIBAN. Activity Level: No Restrictions and Activity as Tolerated Discharge Diet: Regular Follow Up Appointments: Namrata Suarez MD [Primary Care Provider, Internal Medicine] Referral Note: Post hospital follow up 3-7 days. PCP to schedule outpatient TTE and Cardiology appt Forms: MyHealth Info Instructions
--- NOTE | 2024-11-24 12:19 | PC.NURSE ---
Discharge: Patient pleasant and cooperative, A&O. VSS, afebrile. Zio patch applied. IV removed with tip intact. Discharge instructions provided, all questions answered. Discharged to home at 1158
== END 2024-11-24 11:58 | disposition home or self-care (01) ==
LOC: ED 20:45 → MEDSURG 23:38
PROVIDERS: Admitting Provider Family Medicine; Emergency Provider Family Medicine; PCP Internal Medicine; Visit Provider Family Medicine
DX: I48.0 Paroxysmal atrial fibrillation (principal); R07.9 Chest pain, unspecified; Z79.01 Long term (current) use of anticoagulants; Z59.19 Other inadequate housing; I10 Essential (primary) hypertension
CPT/HCPCS: 36415; 80048; 83735; 83880; 84484; 85025; 85610; 93005; 93246; 94761; 96361; 96374; 96375; 96376; 99285; A9270; G0378; J7030

== ENCOUNTER 2024-12-06 14:38 | Outpatient (CLI) | payer MEDICARE, SELFPAY | END 2024-12-06 14:39 | disposition home or self-care (01) | LOC: RAD 14:40 | PROVIDERS: PCP Internal Medicine; Visit Provider Internal Medicine | DX: I48.0 Paroxysmal atrial fibrillation (principal) | CPT/HCPCS: 93306 ==

== ENCOUNTER 2025-02-18 06:32 | Day surgery (SDC) | payer MEDICARE, SELFPAY ==
[2025-02-18] VITALS (10 sets, daily range): BP systolic 137–176; BP diastolic 65–88; PULSE 60–76; RESP 16–18; TEMP 36.2–36.6; O2SAT 95–100; BMI 24.1
[2025-02-18] MEDS: BUPIVACAINE 0.5% 30 ML INJECTION (07:15)
[2025-02-18] MEDS: LIDOCAINE 1%-EPI 1:100,000 20 ML INFILTRATI (07:15)
--- NOTE | 2025-02-18 07:19 | W.PM.H&PU ---
History & Physical Update History & Physical Update H&P Reviewed and patient assessed: No changes noted
--- NOTE | 2025-02-18 07:20 | P.ORPRC_ITS ---
Procedure Note Date of procedure: 02/18/25 Procedure: PREOPERATIVE DIAGNOSIS: 1. Left carpal tunnel syndrome POSTOPERATIVE DIAGNOSIS: 1. Left carpal tunnel syndrome PROCEDURE: 1. Left open carpal tunnel release SURGEON: Kameron Moore MD. DENTAL EQUIPMENT INSTALLER AND SERVICER: Yumiko Perez P.A.-C. An grooming assistant was critical for this case to aid in patient positioning, tissue retraction, limb manipulation/positioning, and closure. ANESTHESIA: Local anesthetic IMPLANTS: None ESTIMATED BLOOD LOSS: 1 mL TOURNIQUET: 11 min at 225 mmHg COMPLICATIONS: None INDICATIONS: The patient is a pleasant 79-year-old female with history of left hand pain, numbness, and tingling secondary to carpal tunnel syndrome. Symptoms were not improving with conservative treatment, and patient elected to proceed with surgical intervention consisting of left carpal tunnel release. Prior to surgery, the risks and benefits of the procedure were discussed with patient, all questions were answered, and informed consent was obtained. DESCRIPTION OF PROCEDURE: Patient was seen preoperatively and operative site was marked. The subcutaneous tissues overlying the left carpal tunnel were injected with a combination of 0.5% bupivacaine and 1% lidocaine with epinephrine. Patient was then brought to the operating room and placed in the supine position on the OR table. A tourniquet was placed on the patient's left arm, and left upper extremity was prepped and draped in usual sterile fashion. A surgical time-out was performed confirming patient name, procedure, and location. The operative extremity was then elevated and exsanguinated with an Esmarch, and the tourniquet was inflated to 225 mmHg. A skin incision measuring approximately 3-4 cm was made in line with the ring finger extending from the distal wrist flexion crease to Hinson's cardinal line. Blunt dissection was used to dissect through subcutaneous tissues and palmar fascia. Transverse carpal ligament was identified and was sharply incised proximally with care taken to protect the underlying median nerve. The transverse carpal ligament was then sharply divided along its ulnar border using tenotomy scissors and a elim ira blade with care taken to protect the underlying median nerve. Once the transverse carpal ligament was divided, the antebrachial fascia was released proximally. The wound was then irrigated with normal saline, and the tourniquet was released. Total tourniquet time was 11 minutes. Hemostasis was achieved with bipolar electrocautery. The skin incision was closed with 4-0 nylon horizontal mattress sutures, and a sterile dressing was applied. Patient was then transferred to the recovery room in stable condition. POSTOPERATIVE PLAN: 1. Patient will be discharged to home day of surgery. 2. Ice and elevation as needed for pain and swelling. 3. Tylenol as needed for pain. 4. They were given instructions for wound care and finger range of motion exercises. 5. Return to the clinic for follow-up evaluation in 10-14 days for wound check and suture removal.
[2025-02-18] MEDS: BACITRACIN OINTMENT BULK TUBE 1 APPLIC TOPICAL (07:57)
--- NOTE | 2025-02-18 08:00 | SUR.PHASEI ---
Patient vital signs in OR documented in PACU I vital sign monitoring worksheet
--- NOTE | 2025-02-18 08:37 | SUR.PREOP ---
SAME DAY SURGERY LOCAL INJECTION SITE VERIFICATION WAS PERFORMED BY SURGEON/PA AND PATIENT PRIOR TO LOCAL ANESTHETIC BEING INJECTED TO OPERATIVE SITE.
== END 2025-02-18 08:25 | disposition home or self-care (01) ==
LOC: OR 06:32
PROVIDERS: PCP Internal Medicine; Visit Provider Orthopaedic Surgery
PROC: (CPT 64721; principal; 2025-02-18 07:30)
DX: G56.02 Carpal tunnel syndrome, left upper limb (principal)
CPT/HCPCS: 64721; J0665